=== PATIENT | male | born 1980 | race Caucasian/White ===

== ENCOUNTER 2020-04-26 08:15 | Emergency (ER) | payer OTHER ==
[~2020-04-26] VITALS: Ht 177.8 cm; Wt 84.1 kg
[2020-04-26] MEDS ORDERED: LIDOcaine 1% W/epiNEPHrine 1:100,000 20ml vial SQ ONE (08:50)
[2020-04-26] MEDS ORDERED: CEPH500C5 PO (09:39)
[2020-04-26 09:44] VITALS: BP 130/73
== END 2020-04-26 09:54 | disposition home or self-care (01) ==
LOC: ER 08:15
DX: S61.210A Laceration without foreign body of right index finger without damage to nail, initial encounter (principal); S62.660B Nondisplaced fracture of distal phalanx of right index finger, initial encounter for open fracture; Z79.899 Other long term (current) drug therapy; W45.8XXA Other foreign body or object entering through skin, initial encounter; Y93.89 Activity, other specified; Y92.89 Other specified places as the place of occurrence of the external cause; Y99.8 Other external cause status
CPT/HCPCS: 12001; 73140; 99283; 99284